=== PATIENT | male | born 1955 | race Caucasian/White ===

== ENCOUNTER 2018-12-08 10:34 | Day surgery (SDC) | payer MEDICARE ==
[2018-12-07 09:37] LABS: BASOPHILS % (AUTO) 0.8 % (0-1); EOSINOPHILS # (AUTO) 0.2 X10'3 (0-0.9); EOSINOPHILS % (AUTO) 2.9 % (0-6); HEMATOCRIT 37.8 % (42.0-52.0); HEMOGLOBIN 12.9 g/dl (14.0-17.9); LYMPHOCYTES # (AUTO) 1.4 X10'3 (1.1-4.8); LYMPHOCYTES % (AUTO) 25.5 % (21-51); MEAN CORPUSCULAR HEMOGLOBIN 27.5 PG (27.0-31.0); MEAN CORPUSCULAR HGB CONC 34.1 g/dL (33.0-36.5); MEAN CORPUSCULAR VOLUME 80.8 FL (78-98); MEAN PLATELET VOLUME 7.5 FL (7.4-10.4); MONOCYTES # (AUTO) 0.4 X10'3 (0-0.9); MONOCYTES % (AUTO) 7.3 % (2-12); NEUTROPHILS # (AUTO) 3.6 X10'3 (1.8-7.7); NEUTROPHILS % (AUTO) 63.5 % (42-75); PLATELET COUNT 183 X10'3 (140-440); RED BLOOD COUNT 4.68 X10'6 (4.70-6.10); RED CELL DISTRIBUTION WIDTH 14.6 % (11.5-14.5); WHITE BLOOD COUNT 5.7 X10'3 (4.5-11.0)
[2018-12-07 09:49] LABS: ANION GAP 8 (8-16); BLOOD UREA NITROGEN 26 MG/DL (7-18); BUN/CREATININE RATIO 21.3 (5.4-32.0); CALCIUM 9.8 MG/DL (8.5-10.1); CHLORIDE 104 MMOL/L (99-107); CREATININE 1.22 MG/DL (0.60-1.10); GLUCOSE 125 MG/DL (70-104); POTASSIUM 4.5 MMOL/L (3.5-5.1); SODIUM 139 MMOL/L (135-145); TOTAL CARBON DIOXIDE 27.1 MMOL/L (24-32); eGFR 60 ML/MIN
[2018-12-07 09:59] LABS: PARTIAL THROMBOPLASTIN TIME 28 SECONDS (22-32)
[2018-12-08] VITALS (10 sets, daily range): BP systolic 121–172; BP diastolic 66–97
[~2018-12-08] VITALS: Ht 182.9 cm; Wt 93.2 kg
[2018-12-08] MEDS ORDERED: diphenhydrAMINE 25mg capsule PO PRN (10:55)
[2018-12-08] MEDS ORDERED: normal saline 1,000 ML IV SCH (10:55)
[2018-12-08] MEDS ORDERED: LORazepam 0.5 MG tablet PO PRN (10:55)
[2018-12-08] MEDS ORDERED: LIDOcaine/PRILOcaine 5gm cream TP ONE (10:55)
[2018-12-08] MEDS ORDERED: ASPI81TA30 PO (11:38)
[2018-12-08] MEDS ORDERED: ATOR40TA PO (11:38)
[2018-12-08] MEDS ORDERED: TELM40TA5 (11:38)
[2018-12-08] MEDS ORDERED: apple cider vinegar (11:38)
[2018-12-08] MEDS ORDERED: LINA5TAB4 PO (11:38)
[2018-12-08] MEDS ORDERED: METF-436 PO (11:38)
[2018-12-08] MEDS ORDERED: GLIP-192 (11:38)
[2018-12-08] MEDS ORDERED: FENO145T36 PO (11:38)
[2018-12-08] MEDS ORDERED: MULT1TAB74 PO (11:38)
[2018-12-08] MEDS ORDERED: MAGN500C16 PO (11:38)
[2018-12-08] MEDS ORDERED: LANTUS SQ (11:48)
[2018-12-08] MEDS ORDERED: LIDOcaine 1% (10mg/ml)w/preservative injection 20ml MDV ONE (13:31)
[2018-12-08] MEDS ORDERED: iohexol 350MG/ML 100ml bottle IV ONE (13:32)
[2018-12-08] MEDS ORDERED: nitroGLYCERIN-Tridil 50MG/D5W 250 ML IV ONE (13:33)
[2018-12-08] MEDS ORDERED: heparin 1,000unit/ml 10ml vial 10 ML ONE (13:33)
[2018-12-08] MEDS ORDERED: verapamil 2.5 mg/ml inj IV ONE (13:34)
[2018-12-08] MEDS ORDERED: midazolam 2 mg/2 ml injection ONE (13:53)
[2018-12-08] MEDS ORDERED: fentaNYL/PF 50MCG/1 ML 2ML syringe ONE (13:53)
--- NOTE | 2018-12-08 15:45 | NUR ---
Problems reprioritized. Patient report given, questions answered & plan of care reviewed with REGINA REHMAN.
== END 2018-12-08 18:00 | disposition home or self-care (01) ==
LOC: SSTAY O 10:34
PROVIDERS: ATTEND Internal Medicine Interventional Cardiology
DX: I25.10 Atherosclerotic heart disease of native coronary artery without angina pectoris (principal); I25.82 Chronic total occlusion of coronary artery; E11.9 Type 2 diabetes mellitus without complications; I10 Essential (primary) hypertension; I05.0 Rheumatic mitral stenosis; I73.9 Peripheral vascular disease, unspecified; Z79.4 Long term (current) use of insulin; Z79.82 Long term (current) use of aspirin; Z87.891 Personal history of nicotine dependence; Z79.01 Long term (current) use of anticoagulants
CPT/HCPCS: 36415; 80048; 82948; 85025; 85610; 85730; 93005; 93458; 99152; 99153; J1644; J2001; J2250; J3010; J7030; Q0163; Q9967; A4620; C1769; J3490

== ENCOUNTER 2018-12-28 05:36 | Inpatient (IN) | payer MEDICARE | END 2019-01-03 13:06 | disposition home or self-care (01) | LOC: PAS IN 05:36 → ICU 2S 10:27 | PROC: 0211093 Bypass Coronary Artery, Two Arteries from Coronary Artery with Autologous Venous Tissue, Open Approach (ICD-10-PCS; principal; 2018-12-28 07:01) | PROC: 02100Z9 Bypass Coronary Artery, One Artery from Left Internal Mammary, Open Approach (ICD-10-PCS; 2018-12-28 07:01) | PROC: 06BP4ZZ Excision of Right Saphenous Vein, Percutaneous Endoscopic Approach (ICD-10-PCS; 2018-12-28 07:01) | DX: I25.119 Atherosclerotic heart disease of native coronary artery with unspecified angina pectoris (principal); N17.0 Acute kidney failure with tubular necrosis; E11.51 Type 2 diabetes mellitus with diabetic peripheral angiopathy without gangrene; E11.21 Type 2 diabetes mellitus with diabetic nephropathy ==

== ENCOUNTER 2023-04-24 10:01 | Inpatient (IN) | payer MEDICARE ==
[~2023-04-24] VITALS: Ht 182.9 cm; Wt 87.3 kg
[~2023-04-24 10:01] MED LIST: AMI200T PO; ASPI81TA30 PO; ATOR40TA PO; COL100C PO; FENO145T26 PO; GLIP10TA21 PO; HYDR-3972 PO; LANTUS SQ; LINA5TAB4 PO; LOP25T PO; MAGN500C4 PO; METF-436 PO; MULT-620 PO; TELM40TA2 PO
[2023-04-24 11:48] LABS: BILIRUBIN,URINE SMALL (Neg); CLARITY,URINE CLOUDY (Clear); COLOR,URINE YELLOW (Yellow); GLUCOSE, URINE 250 mg/dl (Neg); KETONES,URINE NEGATIVE (Neg); LEUKOCYTE ESTERASE ,URINE NEGATIVE (Neg); OCCULT BLOOD,URINE SMALL (Neg); PH,URINE 5.5 (4.8-8.0); PROTEIN,URINE 100 mg/dl (Neg); UROBILINOGEN,URINE 0.2 E.U/dL (0.2-1.0)
[2023-04-24 12:18] LABS: NITRITES, URINE NEGATIVE (Neg); UA COLLECTION TYPE VOIDED
[2023-04-24 12:20] LABS: BACTERIA,URINE FEW /HPF (Neg); SQUAMOUS EPITHELIAL CELL,UR FEW /LPF (FEW)
[2023-04-24 12:23] LABS: AMORPHOUS URATES 2+; MUCUS STRANDS FEW /LPF (Neg)
[2023-04-24 12:32] LABS: BASOPHILS % (AUTO) 0.2 % (0-1); EOSINOPHILS % (AUTO) 0.2 % (0-6); HEMATOCRIT 34.7 % (42.0-52.0); HEMOGLOBIN 11.3 g/dl (14.0-17.9); LYMPHOCYTES # (AUTO) 0.4 X10'3 (1.1-4.8); LYMPHOCYTES % (AUTO) 2.4 % (21-51); MEAN CORPUSCULAR HEMOGLOBIN 26.7 PG (27.0-31.0); MEAN CORPUSCULAR HGB CONC 32.5 g/dL (33.0-36.5); MEAN CORPUSCULAR VOLUME 82.2 FL (78-98); MONOCYTES # (AUTO) 1.4 X10'3 (0-0.9); MONOCYTES % (AUTO) 7.8 % (2-12); NEUTROPHILS # (AUTO) 16.4 X10'3 (1.8-7.7); NEUTROPHILS % (AUTO) 89.4 % (42-75); PLATELET COUNT 231 X10'3 (140-440); RED BLOOD COUNT 4.22 X10'6 (4.70-6.10); RED CELL DISTRIBUTION WIDTH 16.1 % (11.5-14.5); WHITE BLOOD COUNT 18.4 X10'3 (4.5-11.0)
[2023-04-24 13:13] LABS: ALANINE AMINOTRANSFERASE 8 U/L (12-78); ALBUMIN 3.3 G/DL (3.4-5.0); ALBUMIN/GLOBULIN RATIO 0.8 (1.1-1.5); ALKALINE PHOSPHATASE 49 IU/L (46-116); ANION GAP 10 (8-16); ASPARTATE AMINO TRANSFERASE 13 U/L (10-37); BILIRUBIN,TOTAL 0.4 MG/DL (0.1-1.0); BLOOD UREA NITROGEN 37 MG/DL (7-18); BUN/CREATININE RATIO 11.9 (10.0-20.0); CALCIUM 9.2 MG/DL (8.5-10.1); CHLORIDE 100 MMOL/L (99-107); CREATININE 3.11 MG/DL (0.60-1.10); GLUCOSE 250 MG/DL (70-104); LIPASE 474 U/L (73-393); POTASSIUM 4.6 MMOL/L (3.5-5.1); SODIUM 134 MMOL/L (135-145); TOTAL CARBON DIOXIDE 24.5 MMOL/L (24-32); TOTAL PROTEIN 7.6 G/DL (6.4-8.2); eCRCL 25 ML/MIN; eGFR 20 ML/MIN
[2023-04-24] MEDS ORDERED: ondansetron/PF 4mg/2ml inj IM ONE (14:40)
[2023-04-24] MEDS ORDERED: morphine 4 MG/ML inj SYRINge IV ONE (14:40)
[2023-04-24] MEDS ORDERED: CefTRIAXone 2gm/D5W 50ml BAG 50 ML IV ONE (14:40)
[2023-04-24] MEDS ORDERED: normal saline 1000ML IV soln IVB ONE (14:45)
[2023-04-24] MEDS ORDERED: acetaminophen 325mg tablet PO PRN ×2 (17:15)
[2023-04-24] MEDS ORDERED: mag hydrox/Alum hydrox/simeth 30ml oral suspension PO PRN (17:15)
[2023-04-24] MEDS ORDERED: magnesium hydroxide 30ml (MOM) UD suspension PO PRN (17:15)
[2023-04-24] MEDS ORDERED: MESSAGE TO PHARMACY PO ONE (17:15)
[2023-04-24] MEDS ORDERED: dextrose 50%-water 50ml dispensing syringe IV PRN ×2 (17:15)
[2023-04-24] MEDS ORDERED: cloNIDine 0.1 mg tablet PO ONE (17:15)
[2023-04-24] MEDS ORDERED: morphine 2 MG/ML inj. syringe IV PRN (17:15)
[2023-04-24] MEDS ORDERED: DEXTROSE 15 GM of carb/4 tabs (each vial/BOTTLE has 4 tablets) PO PRN ×2 (17:15)
[2023-04-24] MEDS ORDERED: metoclopramide 5 mg/ml inj IV PRN (17:15)
[2023-04-24] MEDS ORDERED: glucagon, human recombinant 1mg kit SUBCUT PRN (17:15)
[2023-04-24] MEDS ORDERED: FENO145T25 PO (17:23)
[2023-04-24] MEDS ORDERED: TEST200V33 IM (17:23)
[2023-04-24] MEDS ORDERED: INSU100V9 SQ (17:23)
[2023-04-24] MEDS ORDERED: DULA1.5P SQ (17:23)
[2023-04-24] MEDS ORDERED: LOSA100T58 PO (17:23)
[2023-04-24] MEDS ORDERED: ATOR40TA71 PO (17:23)
[2023-04-24] MEDS ORDERED: METF-900 PO (17:23)
[2023-04-24] MEDS ORDERED: METO-384 PO (17:23)
[2023-04-24] MEDS ORDERED: ASPI-611 PO (17:25)
[2023-04-24] MEDS ORDERED: MULT-1249 PO (17:25)
[2023-04-24] MEDS ORDERED: MAGN400T39 PO (17:25)
[2023-04-24] MEDS ORDERED: BISM262T46 PO (17:27)
[2023-04-24] MEDS: normal saline 1000ml 1,000 ML IV SCH (17:27)
[2023-04-24] MEDS ORDERED: ACET-1084 PO (17:27)
[2023-04-24 18:01] LABS: PRO BRAIN NATRIURETIC PEPTIDE 5042 PG/ML (0-125)
[2023-04-24 18:14] LABS: HEMOGLOBIN A1C 6.6 % (4.5-6.2)
[2023-04-24] MEDS: docusate sod 100mg capsule PO SCH (20:00)
[2023-04-24] MEDS: insulin Lispro (HumaLOG) vial - multi-dose SQ SCH (21:16)
[2023-04-24] MEDS: insulin glargine (Lantus) pen - multi-dose SQ SCH (21:17)
[2023-04-24] MEDS ORDERED: docusate sod 100mg capsule PO ONE (21:25)
[2023-04-24] MEDS: atorvastatin 20mg tablet PO SCH (21:27)
[2023-04-25] MEDS: normal saline 1000ml 1,000 ML IV SCH ×4 (00:08→19:33)
[2023-04-25] MEDS: piperacillin/tazo 4.5gm/100ml 100 ML IV SCH ×3 (00:11→16:12)
[2023-04-25] MEDS: HYDROcodone/acetaminophen 10/325mg tab PO PRN ×3 (03:56→22:19)
--- NOTE | 2023-04-25 06:50 | NUR ---
Patient in room ED 12. I have received report from Harmony and had the opportunity to ask questions and assume patient care.
[2023-04-25 07:38] VITALS: BP 155/73; PULSE 85; RESP 16; TEMP 97.9; O2SAT 97
[2023-04-25] MEDS: fenofibrate 145mg tablet PO SCH (07:40)
[2023-04-25] MEDS: metoprolol succinate 25mg (24-HOUR) SR. Tablet PO SCH (07:40)
[2023-04-25] MEDS: docusate sod 100mg capsule PO SCH ×2 (07:40→19:29)
[2023-04-25] MEDS: losartan 50mg tablet PO SCH (07:41)
[2023-04-25] MEDS ORDERED: enoxaparin 40mg/0.4ml syringe SUBCUT SCH (08:00)
[2023-04-25 08:14] LABS: BASOPHILS % (AUTO) 0.3 % (0-1); EOSINOPHILS # (AUTO) 0.3 X10'3 (0-0.9); EOSINOPHILS % (AUTO) 2.8 % (0-6); HEMATOCRIT 27.5 % (42.0-52.0); LYMPHOCYTES # (AUTO) 0.9 X10'3 (1.1-4.8); LYMPHOCYTES % (AUTO) 7.1 % (21-51); MEAN CORPUSCULAR HGB CONC 32.8 g/dL (33.0-36.5); MEAN CORPUSCULAR VOLUME 82.4 FL (78-98); MEAN PLATELET VOLUME 7.9 FL (7.4-10.4); MONOCYTES # (AUTO) 0.9 X10'3 (0-0.9); MONOCYTES % (AUTO) 7.3 % (2-12); NEUTROPHILS # (AUTO) 10.2 X10'3 (1.8-7.7); NEUTROPHILS % (AUTO) 82.5 % (42-75); PLATELET COUNT 190 X10'3 (140-440); RED BLOOD COUNT 3.34 X10'6 (4.70-6.10); RED CELL DISTRIBUTION WIDTH 15.6 % (11.5-14.5); WHITE BLOOD COUNT 12.3 X10'3 (4.5-11.0)
[2023-04-25 09:17] LABS: ALANINE AMINOTRANSFERASE 23 U/L (12-78); ALBUMIN 2.5 G/DL (3.4-5.0); ALBUMIN/GLOBULIN RATIO 0.7 (1.1-1.5); ALKALINE PHOSPHATASE 52 IU/L (46-116); ANION GAP 9 (8-16); ASPARTATE AMINO TRANSFERASE 23 U/L (10-37); BILIRUBIN,TOTAL 0.2 MG/DL (0.1-1.0); BLOOD UREA NITROGEN 39 MG/DL (7-18); BUN/CREATININE RATIO 11.9 (10.0-20.0); CALCIUM 8.4 MG/DL (8.5-10.1); CHLORIDE 103 MMOL/L (99-107); CHOL/HDL RATIO 3.4 (0.00-4.99); CHOLESTEROL 99 MG/DL (0-200); CREATININE 3.28 MG/DL (0.60-1.10); GLUCOSE 174 MG/DL (70-104); HDL CHOLESTEROL 29 MG/DL (35-60); LDL CHOLESTEROL 44 MG/DL (50-100); SODIUM 135 MMOL/L (135-145); TOTAL CARBON DIOXIDE 22.9 MMOL/L (24-32); TOTAL PROTEIN 6.3 G/DL (6.4-8.2); TRIGLYCERIDES 124 MG/DL (20-135); eCRCL 23 ML/MIN; eGFR 19 ML/MIN
[2023-04-25] MEDS: insulin Lispro (HumaLOG) vial - multi-dose SQ SCH ×3 (09:39→19:33)
[2023-04-25 10:00] VITALS: BP 137/60; PULSE 89; RESP 15; TEMP 98.1; O2SAT 96
[2023-04-25 18:00] VITALS: BP 126/65; PULSE 95; RESP 16; TEMP 97.6
--- NOTE | 2023-04-25 18:38 | NUR ---
Problems reprioritized. Patient report given, questions answered & plan of care reviewed with Prudence.
--- NOTE | 2023-04-25 19:08 | NUR ---
Patient in room ORTHO 4021. I have received report from TESSIE TAPIA and had the opportunity to ask questions and assume patient care.
[2023-04-25 19:57] VITALS: RESP 14
[2023-04-25 20:00] VITALS: RESP 14
[2023-04-25] MEDS: atorvastatin 20mg tablet PO SCH (21:07)
[2023-04-25] MEDS: insulin glargine (Lantus) pen - multi-dose SQ SCH (21:13)
[2023-04-25 22:00] VITALS: BP 141/60; PULSE 94; RESP 18; TEMP 97.7; O2SAT 96
[2023-04-26] MEDS: piperacillin/tazo 4.5gm/100ml 100 ML IV SCH ×3 (00:30→15:58)
[2023-04-26] MEDS: normal saline 1000ml 1,000 ML IV SCH ×4 (02:47→22:25)
[2023-04-26] MEDS: HYDROcodone/acetaminophen 5mg/325mg tablet PO PRN ×2 (04:19→14:28)
[2023-04-26 05:11] LABS: BASOPHILS % (AUTO) 0.3 % (0-1); EOSINOPHILS # (AUTO) 0.4 X10'3 (0-0.9); EOSINOPHILS % (AUTO) 3.6 % (0-6); HEMATOCRIT 25.5 % (42.0-52.0); HEMOGLOBIN 8.4 g/dl (14.0-17.9); LYMPHOCYTES # (AUTO) 0.7 X10'3 (1.1-4.8); LYMPHOCYTES % (AUTO) 6.7 % (21-51); MEAN CORPUSCULAR HEMOGLOBIN 27.2 PG (27.0-31.0); MEAN CORPUSCULAR HGB CONC 32.8 g/dL (33.0-36.5); MEAN CORPUSCULAR VOLUME 82.9 FL (78-98); MEAN PLATELET VOLUME 8.2 FL (7.4-10.4); MONOCYTES # (AUTO) 0.8 X10'3 (0-0.9); MONOCYTES % (AUTO) 7.9 % (2-12); NEUTROPHILS # (AUTO) 8.3 X10'3 (1.8-7.7); NEUTROPHILS % (AUTO) 81.5 % (42-75); PLATELET COUNT 192 X10'3 (140-440); RED BLOOD COUNT 3.08 X10'6 (4.70-6.10); WHITE BLOOD COUNT 10.2 X10'3 (4.5-11.0)
[2023-04-26 05:23] LABS: ALANINE AMINOTRANSFERASE 32 U/L (12-78); ALBUMIN 2.2 G/DL (3.4-5.0); ALBUMIN/GLOBULIN RATIO 0.6 (1.1-1.5); ALKALINE PHOSPHATASE 115 IU/L (46-116); ANION GAP 11 (8-16); ASPARTATE AMINO TRANSFERASE 36 U/L (10-37); BILIRUBIN,TOTAL 0.3 MG/DL (0.1-1.0); BLOOD UREA NITROGEN 39 MG/DL (7-18); BUN/CREATININE RATIO 10.8 (10.0-20.0); CALCIUM 8.3 MG/DL (8.5-10.1); CHLORIDE 106 MMOL/L (99-107); CREATININE 3.62 MG/DL (0.60-1.10); GLUCOSE 148 MG/DL (70-104); POTASSIUM 4.3 MMOL/L (3.5-5.1); SODIUM 138 MMOL/L (135-145); TOTAL CARBON DIOXIDE 20.9 MMOL/L (24-32); TOTAL PROTEIN 6.1 G/DL (6.4-8.2); eCRCL 21 ML/MIN; eGFR 17 ML/MIN
[2023-04-26 06:00] VITALS: BP 157/69; PULSE 88; RESP 18; TEMP 98; O2SAT 96
--- NOTE | 2023-04-26 06:35 | NUR ---
Patient in room ORTHO 4021. I have received report from Malissa and had the opportunity to ask questions and assume patient care.
--- NOTE | 2023-04-26 06:37 | NUR ---
Problems reprioritized. Patient report given, questions answered & plan of care reviewed with AUDREY TAPIA.
[2023-04-26] MEDS: insulin Lispro (HumaLOG) vial - multi-dose SQ SCH ×2 (08:22→12:54)
[2023-04-26 08:25] VITALS: RESP 18; O2SAT 96
[2023-04-26] MEDS: docusate sod 100mg capsule PO SCH ×3 (08:25→19:23)
[2023-04-26] MEDS: enoxaparin 30mg/0.3ml syringe SUBCUT SCH (08:26)
[2023-04-26] MEDS: fenofibrate 145mg tablet PO SCH (08:26)
[2023-04-26] MEDS: metoprolol succinate 25mg (24-HOUR) SR. Tablet PO SCH (08:26)
[2023-04-26] MEDS: losartan 50mg tablet PO SCH (08:26)
[2023-04-26 10:00] VITALS: BP 152/71; PULSE 85; RESP 18; TEMP 97.4; O2SAT 98
--- NOTE | 2023-04-26 11:00 | NUR ---
Bladder scanned patient - 421 mLs. After urination post residual amount - 91 mLs
[2023-04-26 18:00] VITALS: BP 166/78; PULSE 87; RESP 16; TEMP 98; O2SAT 98
[2023-04-26 18:15] LABS: OCCULT BLOOD STOOL NEGATIVE (Neg)
--- NOTE | 2023-04-26 18:44 | NUR ---
Problems reprioritized. Patient report given, questions answered & plan of care reviewed with
[2023-04-26] MEDS: ondansetron/PF 4mg/2ml inj IV PRN (19:17)
[2023-04-26] MEDS: morphine 2 MG/ML inj. syringe IV PRN ×2 (19:18→23:07)
[2023-04-26 20:00] VITALS: RESP 16; O2SAT 98
[2023-04-26] MEDS: insulin glargine (Lantus) pen - multi-dose SQ SCH (21:00)
[2023-04-26] MEDS: atorvastatin 20mg tablet PO SCH (21:14)
[2023-04-26 22:36] VITALS: BP 187/87; PULSE 104; RESP 18; TEMP 98.1; O2SAT 94
[2023-04-26] MEDS ORDERED: amLODIPine 2.5mg tablet PO STA (22:52)
[2023-04-27] VITALS (8 sets, daily range): BP systolic 137–200; BP diastolic 51–94; PULSE 87–103; RESP 18; TEMP 97.8–98.6; O2SAT 94–96
[2023-04-27] MEDS: piperacillin/tazo 4.5gm/100ml 100 ML IV SCH ×3 (00:09→16:49)
[2023-04-27] MEDS: normal saline 1000ml 1,000 ML IV SCH ×3 (04:26→22:35)
[2023-04-27] MEDS: HYDROcodone/acetaminophen 10/325mg tab PO PRN (04:27)
[2023-04-27 06:44] LABS: BASOPHILS % (AUTO) 0.5 % (0-1); EOSINOPHILS # (AUTO) 0.3 X10'3 (0-0.9); EOSINOPHILS % (AUTO) 3.3 % (0-6); HEMATOCRIT 24.1 % (42.0-52.0); HEMOGLOBIN 7.7 g/dl (14.0-17.9); LYMPHOCYTES # (AUTO) 0.7 X10'3 (1.1-4.8); LYMPHOCYTES % (AUTO) 7.8 % (21-51); MEAN CORPUSCULAR HEMOGLOBIN 26.7 PG (27.0-31.0); MEAN CORPUSCULAR HGB CONC 31.7 g/dL (33.0-36.5); MEAN CORPUSCULAR VOLUME 84.2 FL (78-98); MEAN PLATELET VOLUME 8.1 FL (7.4-10.4); MONOCYTES # (AUTO) 0.8 X10'3 (0-0.9); MONOCYTES % (AUTO) 8.9 % (2-12); NEUTROPHILS # (AUTO) 6.8 X10'3 (1.8-7.7); NEUTROPHILS % (AUTO) 79.5 % (42-75); PLATELET COUNT 206 X10'3 (140-440); RED BLOOD COUNT 2.87 X10'6 (4.70-6.10); RED CELL DISTRIBUTION WIDTH 15.9 % (11.5-14.5); WHITE BLOOD COUNT 8.5 X10'3 (4.5-11.0)
[2023-04-27 07:00] LABS: ALANINE AMINOTRANSFERASE 24 U/L (12-78); ALBUMIN/GLOBULIN RATIO 0.5 (1.1-1.5); ALKALINE PHOSPHATASE 104 IU/L (46-116); ANION GAP 16 (8-16); ASPARTATE AMINO TRANSFERASE 15 U/L (10-37); BILIRUBIN,TOTAL 0.3 MG/DL (0.1-1.0); BLOOD UREA NITROGEN 34 MG/DL (7-18); BUN/CREATININE RATIO 9.8 (10.0-20.0); CALCIUM 8.4 MG/DL (8.5-10.1); CHLORIDE 107 MMOL/L (99-107); CREATININE 3.48 MG/DL (0.60-1.10); GLUCOSE 132 MG/DL (70-104); POTASSIUM 4.2 MMOL/L (3.5-5.1); SODIUM 139 MMOL/L (135-145); TOTAL CARBON DIOXIDE 16.2 MMOL/L (24-32); TOTAL PROTEIN 5.7 G/DL (6.4-8.2); eCRCL 22 ML/MIN; eGFR 18 ML/MIN
[2023-04-27] MEDS: fenofibrate 145mg tablet PO SCH (09:17)
[2023-04-27] MEDS: enoxaparin 30mg/0.3ml syringe SUBCUT SCH (09:17)
[2023-04-27] MEDS: losartan 50mg tablet PO SCH (09:17)
[2023-04-27] MEDS: metoprolol succinate 25mg (24-HOUR) SR. Tablet PO SCH (09:18)
[2023-04-27] MEDS: docusate sod 100mg capsule PO SCH ×2 (09:18→20:00)
[2023-04-27] MEDS: insulin Lispro (HumaLOG) vial - multi-dose SQ SCH ×2 (09:29→18:34)
[2023-04-27 13:49] LABS: BILIRUBIN,URINE NEGATIVE (Neg); CLARITY,URINE SLIGHTLY CLOUDY (Clear); COLOR,URINE STRAW (Yellow); GLUCOSE, URINE NEGATIVE (Neg); KETONES,URINE 15 mg/dl (Neg); LEUKOCYTE ESTERASE ,URINE NEGATIVE (Neg); NITRITES, URINE NEGATIVE (Neg); OCCULT BLOOD,URINE SMALL (Neg); PH,URINE 5.5 (4.8-8.0); PROTEIN,URINE 100 mg/dl (Neg); UROBILINOGEN,URINE 0.2 E.U/dL (0.2-1.0)
[2023-04-27 13:55] LABS: TOTAL PROTEIN,URINE RANDOM 163.8 MG/DL; UA COLLECTION TYPE URINAL
[2023-04-27 13:59] LABS: AMORPHOUS URATES 1+; BACTERIA,URINE NONE SEEN /HPF (Neg); HYALINE CASTS 0-3 /LPF (NEGATIVE); MUCUS STRANDS NONE SEEN /LPF (Neg); RBC,URINE 0-2 /HPF (0-2); SQUAMOUS EPITHELIAL CELL,UR NONE SEEN /LPF (FEW); WBC,URINE 0-4 /HPF (0-4)
[2023-04-27 14:00] LABS: COARSE GRANULAR CAST 0-3 /LPF (NEGATIVE)
[2023-04-27 14:54] LABS: UA EOSINOPHILS NO EOS /HPF
--- NOTE | 2023-04-27 17:34 | NUR ---
MANUAL BP 200/94, PAGED AWAITING CALL BACK
[2023-04-27] MEDS ORDERED: cloNIDine 0.1 mg tablet PO ONE (18:15)
--- NOTE | 2023-04-27 18:30 | NUR ---
Problems reprioritized. Patient report given, questions answered & plan of care reviewed with REGINA GODDARD.
[2023-04-27] MEDS: atorvastatin 20mg tablet PO SCH (20:46)
[2023-04-27] MEDS: insulin glargine (Lantus) pen - multi-dose SQ SCH (20:49)
[2023-04-28] VITALS (8 sets, daily range): BP systolic 167–194; BP diastolic 68–84; PULSE 83–97; RESP 16–18; TEMP 97.4–98.5; O2SAT 92–100
[2023-04-28] MEDS: piperacillin/tazo 4.5gm/100ml 100 ML IV SCH ×2 (00:08→08:00)
--- NOTE | 2023-04-28 06:00 | NUR ---
Patient in room ORTHO 4021. I have received report from Susanne TAPIA and had the opportunity to ask questions and assume patient care.
--- NOTE | 2023-04-28 06:06 | NUR ---
Problems reprioritized. Patient report given, questions answered & plan of care reviewed with REGINA NIEVES.
[2023-04-28 06:08] LABS: HEMATOCRIT 22.2 % (42.0-52.0); HEMOGLOBIN 7.3 g/dl (14.0-17.9)
[2023-04-28 06:10] LABS: BASOPHILS % (AUTO) 0.5 % (0-1); EOSINOPHILS # (AUTO) 0.2 X10'3 (0-0.9); LYMPHOCYTES # (AUTO) 0.4 X10'3 (1.1-4.8); LYMPHOCYTES % (AUTO) 7.4 % (21-51); MEAN CORPUSCULAR HEMOGLOBIN 27.2 PG (27.0-31.0); MEAN CORPUSCULAR HGB CONC 32.8 g/dL (33.0-36.5); MEAN CORPUSCULAR VOLUME 82.8 FL (78-98); MEAN PLATELET VOLUME 7.3 FL (7.4-10.4); MONOCYTES # (AUTO) 0.6 X10'3 (0-0.9); MONOCYTES % (AUTO) 9.4 % (2-12); NEUTROPHILS # (AUTO) 4.7 X10'3 (1.8-7.7); NEUTROPHILS % (AUTO) 79.7 % (42-75); PLATELET COUNT 199 X10'3 (140-440); RED BLOOD COUNT 2.68 X10'6 (4.70-6.10); RED CELL DISTRIBUTION WIDTH 15.8 % (11.5-14.5); WHITE BLOOD COUNT 5.9 X10'3 (4.5-11.0)
[2023-04-28 06:25] LABS: ALANINE AMINOTRANSFERASE 12 U/L (12-78); ALBUMIN 1.8 G/DL (3.4-5.0); ALBUMIN/GLOBULIN RATIO 0.5 (1.1-1.5); ALKALINE PHOSPHATASE 76 IU/L (46-116); ANION GAP 12 (8-16); ASPARTATE AMINO TRANSFERASE 14 U/L (10-37); BILIRUBIN,TOTAL 0.2 MG/DL (0.1-1.0); BLOOD UREA NITROGEN 30 MG/DL (7-18); BUN/CREATININE RATIO 9.3 (10.0-20.0); CALCIUM 8.6 MG/DL (8.5-10.1); CHLORIDE 111 MMOL/L (99-107); CREATININE 3.24 MG/DL (0.60-1.10); GLUCOSE 175 MG/DL (70-104); POTASSIUM 4.4 MMOL/L (3.5-5.1); SODIUM 142 MMOL/L (135-145); TOTAL CARBON DIOXIDE 18.8 MMOL/L (24-32); TOTAL PROTEIN 5.5 G/DL (6.4-8.2); eCRCL 24 ML/MIN; eGFR 19 ML/MIN
--- NOTE | 2023-04-28 06:26 | NUR ---
Problems reprioritized. Patient report given, questions answered & plan of care reviewed with CHEPE NIEVES.
--- NOTE | 2023-04-28 07:35 | NUR ---
PAGER ID: [phone] MESSAGE: [id number]- EhsanrandyCorwin- patient hgb is 7.3. pls advise? NANCY burgess [phone]
[2023-04-28] MEDS: fenofibrate 145mg tablet PO SCH (07:49)
[2023-04-28] MEDS: metoprolol succinate 25mg (24-HOUR) SR. Tablet PO SCH (07:49)
[2023-04-28] MEDS: losartan 50mg tablet PO SCH (07:51)
[2023-04-28] MEDS: HYDROcodone/acetaminophen 5mg/325mg tablet PO PRN (07:57)
[2023-04-28] MEDS: docusate sod 100mg capsule PO SCH (08:00)
[2023-04-28] MEDS: enoxaparin 30mg/0.3ml syringe SUBCUT SCH (08:01)
[2023-04-28] MEDS: normal saline 1000ml 1,000 ML IV SCH ×3 (08:02→23:01)
[2023-04-28] MEDS ORDERED: morphine 2 MG/ML inj. syringe IV PRN ×2 (09:35→09:40)
[2023-04-28] MEDS: insulin Lispro (HumaLOG) vial - multi-dose SQ SCH (10:07)
--- NOTE | 2023-04-28 11:41 | NUR ---
I have reviewed and agree with interventions, assessments, and documentation by Valeria Keys LVN.
--- NOTE | 2023-04-28 11:48 | NUR ---
PAGER ID: [phone] MESSAGE: [id number]- Tiffanie, J - Patient is requesting ensure with meals. Patient not eating much food. Also, hgb is 7.3. Pls advise? Paresh burgess [phone]
--- NOTE | 2023-04-28 11:49 | NUR ---
CUFF MAKER TC: Pt on renal/carb controlled diet admit DX ROBERTA w/ acute pancreatitis GI symptoms resolving per EMR. Per CUFF MAKER, pt poor intake 0-25% solid meals request ONS recs. RD d/w CUFF MAKER recommends removal of carb control restriction since A1C 6.6% and patient large stature as well as Ensure Enlive TIDWM if MD agreeable. RD d/w CUFF MAKER if pt tolerating meals without GI symptoms and dislikes Ensures then Nepro may be better alternative though it is higher in fats. Addendum: 04/28/23 at [address] Amended: Links added.
[2023-04-28] MEDS ORDERED: hyDRALAzine 10mg tablet PO ONE (13:05)
--- NOTE | 2023-04-28 13:53 | NUR ---
Verbally spoke with about probiotic, PRN BP meds, Ensure and HGB results. Per Dr. Smith no ensure due to the patient having loose stool, not worried about HGB at this time. Got orders for hydralize PRN, orders in chart. Per Dr. Smith get records from Benjamin Phillip and Dr. Benito. Patient signed [facility] and faxed to appropriate parties.
--- NOTE | 2023-04-28 17:05 | NUR ---
PAGER ID: [phone] MESSAGE: [id number] Tiffanie, Corwin- Patient BP is 189/84 and 194/79. Gave the hydralazine 3 hours ago. Pls advise? NANCY Shaw [phone]
[2023-04-28] MEDS: HYDROcodone/acetaminophen 10/325mg tab PO PRN (17:11)
[2023-04-28] MEDS: labetalol 100mg tablet PO SCH ×2 (18:01→20:00)
--- NOTE | 2023-04-28 18:10 | NUR ---
Problems reprioritized. Patient report given, questions answered & plan of care reviewed with Susanne TAPIA.
[2023-04-28] MEDS: metroNIDAZOLE-Flagyl 500mg/NS 100 ML IV SCH (19:26)
[2023-04-28] MEDS: ciprofloxacin lact 400MG/200ML 200 ML IV SCH (21:16)
[2023-04-28] MEDS: heparin, porcine 5000 units/ml vial SQ SCH (21:19)
[2023-04-28] MEDS: ondansetron/PF 4mg/2ml inj IV PRN (21:22)
[2023-04-28] MEDS: atorvastatin 20mg tablet PO SCH (21:35)
[2023-04-28] MEDS: hyDRALAzine 10mg tablet PO PRN (22:55)
--- NOTE | 2023-04-28 23:10 | NUR ---
Received report from Susanne TAPIA and assumed care of patient. Patient is currently sleeping, snoring, bed is low/locked.
--- NOTE | 2023-04-28 23:10 | NUR ---
GAVE REPORT TO REGINA MATOS
--- NOTE | 2023-04-28 23:30 | NUR ---
I have reviewed assessment completed earlier in shift and agree with findings.
[2023-04-29] VITALS (9 sets, daily range): BP systolic 137–189; BP diastolic 65–85; PULSE 74–102; RESP 16–18; TEMP 97.8–98.6; O2SAT 93–96
[2023-04-29] MEDS: normal saline 1000ml 1,000 ML IV SCH ×2 (04:48→13:55)
[2023-04-29] MEDS: HYDROcodone/acetaminophen 10/325mg tab PO PRN ×2 (04:53→18:47)
--- NOTE | 2023-04-29 06:30 | NUR ---
Problems reprioritized. Patient report given, questions answered & plan of care reviewed with Gwen MO.
--- NOTE | 2023-04-29 06:30 | NUR ---
Patient in room ORTHO 4021. I have received report from Shanique TAPIA and had the opportunity to ask questions and assume patient care.
[2023-04-29 06:43] LABS: BASOPHILS % (AUTO) 0.3 % (0-1); EOSINOPHILS # (AUTO) 0.2 X10'3 (0-0.9); EOSINOPHILS % (AUTO) 2.8 % (0-6); HEMOGLOBIN 7.9 g/dl (14.0-17.9); LYMPHOCYTES # (AUTO) 0.5 X10'3 (1.1-4.8); LYMPHOCYTES % (AUTO) 6.8 % (21-51); MEAN CORPUSCULAR HEMOGLOBIN 27.3 PG (27.0-31.0); MEAN CORPUSCULAR VOLUME 82.8 FL (78-98); MEAN PLATELET VOLUME 7.3 FL (7.4-10.4); MONOCYTES # (AUTO) 0.7 X10'3 (0-0.9); MONOCYTES % (AUTO) 8.9 % (2-12); NEUTROPHILS # (AUTO) 6.3 X10'3 (1.8-7.7); NEUTROPHILS % (AUTO) 81.2 % (42-75); PLATELET COUNT 231 X10'3 (140-440); RED CELL DISTRIBUTION WIDTH 15.6 % (11.5-14.5); WHITE BLOOD COUNT 7.8 X10'3 (4.5-11.0)
[2023-04-29 07:12] LABS: ALANINE AMINOTRANSFERASE 13 U/L (12-78); ALBUMIN/GLOBULIN RATIO 0.5 (1.1-1.5); ALKALINE PHOSPHATASE 71 IU/L (46-116); ANION GAP 13 (8-16); ASPARTATE AMINO TRANSFERASE 15 U/L (10-37); BILIRUBIN,TOTAL 0.2 MG/DL (0.1-1.0); BLOOD UREA NITROGEN 25 MG/DL (7-18); BUN/CREATININE RATIO 8.4 (10.0-20.0); CALCIUM 8.5 MG/DL (8.5-10.1); CHLORIDE 109 MMOL/L (99-107); CREATININE 2.97 MG/DL (0.60-1.10); GLUCOSE 177 MG/DL (70-104); POTASSIUM 4.2 MMOL/L (3.5-5.1); SODIUM 139 MMOL/L (135-145); TOTAL CARBON DIOXIDE 17.3 MMOL/L (24-32); TOTAL PROTEIN 6.1 G/DL (6.4-8.2); eCRCL 26 ML/MIN; eGFR 21 ML/MIN
[2023-04-29] MEDS: ciprofloxacin lact 400MG/200ML 200 ML IV SCH ×2 (08:00→20:13)
[2023-04-29] MEDS: metroNIDAZOLE-Flagyl 500mg/NS 100 ML IV SCH ×2 (08:09→19:58)
[2023-04-29] MEDS: labetalol 100mg tablet PO SCH ×2 (08:18→19:48)
[2023-04-29] MEDS: losartan 50mg tablet PO SCH (08:19)
[2023-04-29] MEDS: heparin, porcine 5000 units/ml vial SQ SCH ×2 (08:21→19:50)
[2023-04-29 10:00] LABS: LIPASE 306 U/L (73-393)
[2023-04-29] MEDS: hyDRALAzine 10mg tablet PO PRN (11:07)
--- NOTE | 2023-04-29 11:11 | NUR ---
Initial: Pt admit DX acute pancreatitis, N/V, ROBERTA from dehydration, CAD, HTN, T2DM A1C 6.6%, and possible sepsis w/ hx upper endoscopy 04/18/23 per EMR. Pt initial ~2 days PO ~25-50% clears/full liquids advanced to renal/carb controlled diet / WL and now regular diet last night WS PO ~21% avg solid meals not meeting needs. Pt seen by RD at bedside; pt reports no GI symptoms requested ONS yesterday though physician declined given loose stools. RD d/w TENNIS NET MAKER and dina SANTIZO recommends strawberry Ensure Plus High Protein TIDWM to assist meeting needs; ONS pending physician verification in EMR. Pt only documented as having soft stools this admit though pancreatitis DX and receiving routine colace last dose 9 AM likely influenced stool quality. Will monitor for further nutrition intervention needs. Rec: 1. continue regular diet; encourage PO 2. strawberry Ensure Plus High Protein TIDWM per pt request; pending physician verification in EMR 3. consider routine MVM if poor PO persists 4. bowel care per rx 5. scaled wt this admit; subsequent weekly wts Addendum: 04/29/23 at [address] Amended: Links added.
[2023-04-29] MEDS: LACTOSE-REDUCED FOOD 237ML LIQUID PO SCH (13:00)
[2023-04-29] MEDS: cloNIDine 0.1 mg tablet PO SCH ×2 (13:16→19:49)
[2023-04-29 15:32] LABS: PRO BRAIN NATRIURETIC PEPTIDE 27304 PG/ML (0-125)
--- NOTE | 2023-04-29 15:32 | NUR ---
PAGER ID: [phone] MESSAGE: [id number]- Naina Moreno doesn't have an updated kidney function lab available. Paresh Shaw [phone]
[2023-04-29] MEDS: furosemide 20 MG/2 ML vial IV SCH ×2 (17:41→19:49)
--- NOTE | 2023-04-29 18:00 | NUR ---
I have reviewed and agree with interventions, assessments, and documentation by Valeria Keys LVN.
--- NOTE | 2023-04-29 18:37 | NUR ---
Problems reprioritized. Patient report given, questions answered & plan of care reviewed with Ursula TAPIA.
--- NOTE | 2023-04-29 18:38 | NUR ---
Patient in room ORTHO 4021. I have received report from CHEPE ASKEW and had the opportunity to ask questions and assume patient care.
[2023-04-29] MEDS: atorvastatin 20mg tablet PO SCH (20:13)
[2023-04-30] MEDS: HYDROcodone/acetaminophen 10/325mg tab PO PRN (05:39)
[2023-04-30 05:50] VITALS: BP 168/84; PULSE 91
[2023-04-30 06:00] VITALS: BP 205/88; PULSE 89; RESP 16; TEMP 98; O2SAT 97
--- NOTE | 2023-04-30 06:42 | NUR ---
Problems reprioritized. Patient report given, questions answered & plan of care reviewed with REGINA Potter.
--- NOTE | 2023-04-30 06:48 | NUR ---
Patient in room ORTHO 4021. I have received report from REGINA Agustin and had the opportunity to ask questions and assume patient care.
--- NOTE | 2023-04-30 06:49 | NUR ---
Patient in room ORTHO 4021. I have received report from REGINA Agustin and had the opportunity to ask questions and assume patient care.
[2023-04-30] MEDS ORDERED: LACTOSE-REDUCED FOOD 237ML LIQUID PO SCH (08:00)
[2023-04-30] MEDS: LACTOSE-REDUCED FOOD 237ML LIQUID PO SCH (08:00)
[2023-04-30] MEDS ORDERED: hydrALAZINE 20mg/ml inj. IV PRN (08:35)
[2023-04-30] MEDS: labetalol 100mg tablet PO SCH (09:02)
[2023-04-30] MEDS: cloNIDine 0.1 mg tablet PO SCH (09:03)
[2023-04-30] MEDS: losartan 50mg tablet PO SCH (09:03)
[2023-04-30] MEDS: furosemide 20 MG/2 ML vial IV SCH (09:03)
[2023-04-30] MEDS: heparin, porcine 5000 units/ml vial SQ SCH (09:04)
[2023-04-30] MEDS: metroNIDAZOLE-Flagyl 500mg/NS 100 ML IV SCH (09:09)
[2023-04-30] MEDS: normal saline 1000ml 1,000 ML IV SCH (09:14)
[2023-04-30 10:00] VITALS: BP 160/68; PULSE 93; RESP 16; TEMP 98.4; O2SAT 95
[2023-04-30] MEDS: ciprofloxacin lact 400MG/200ML 200 ML IV SCH (11:10)
[2023-04-30] MEDS ORDERED: FURO20TA4 PO (12:01)
--- NOTE | 2023-04-30 12:50 | NUR ---
MESSAGE: claudine-ortho/neuro- pt rm 21B, Jesse Moreno had a BS 245. He maintains it at home with Tragenta and Lantus. Still okay to discharge without covering?
--- NOTE | 2023-04-30 14:11 | NUR ---
pt given discharge packet and discussed/answered any questions he had. Pt left with all of his belongings and wheelchair down to the front of the lobby. Pt left with daughter in a private vehicle in stable conditions and in no distress.
== END 2023-04-30 14:15 | disposition home or self-care (01) | DRG 871 ==
LOC: ER 10:02 → ED HOLD 17:19 → ORTHO 4S 04-25 07:30
PROVIDERS: ADMIT Internal Medicine; ATTEND Internal Medicine
DX: A41.9 Sepsis, unspecified organism (principal); K85.90 Acute pancreatitis without necrosis or infection, unspecified; N17.9 Acute kidney failure, unspecified; E86.0 Dehydration; E11.9 Type 2 diabetes mellitus without complications; I10 Essential (primary) hypertension; I25.10 Atherosclerotic heart disease of native coronary artery without angina pectoris; N26.1 Atrophy of kidney (terminal); Z82.49 Family history of ischemic heart disease and other diseases of the circulatory system; Z95.1 Presence of aortocoronary bypass graft; Z63.4 Disappearance and death of family member; Z79.899 Other long term (current) drug therapy; Z79.82 Long term (current) use of aspirin
CPT/HCPCS: 36415; 71045; 74176; 76700; 80053; 80061; 81001; 82272; 82570; 82948; 83036; 83605; 83690; 83880; 84145; 84156; 84300; 85025; 87040; 87081; 87088; 87207; 87502; 87503; 87811; 93306; 97161; 99285; G0378; J0696; J0744; J1644; J1650; J1815; J1940; J2270; J2405; J2543; J3490; J7030